=== PATIENT | female | born 1960 | race Caucasian/White ===

== ENCOUNTER 2020-03-01 07:25 | Outpatient (CLI) | payer BC, OTHER, SELFPAY ==
--- NOTE | ~2020-03-01 | MM_ITS ---
EXAMINATION: MM screening [facility] BI w ted HISTORY: Screening mammogram TECHNIQUE: Craniocaudal and mediolateral oblique 3-D tomosynthesis images were obtained and synthetic 2-D images were generated. CAD analysis was submitted and interpreted. COMPARISON: Comparison to multiple prior studies sequentially, with oldest reviewed study dated 09/17. BREAST PARENCHYMAL COMPOSITION: There are scattered areas of fibroglandular density. FINDINGS: There is no evidence of suspicious mass, calcification, or architectural distortion to sugg est malignancy in either breast. There has been no suspicious interval change. IMPRESSION: 1. No mammographic evidence of malignancy. 2. Recommend routine screening mammography in one year. BI-RADS Category 1: Negative Reviewed, dictated and finalized at location A.
== END 2020-03-01 07:26 | disposition home or self-care (01) ==
LOC: ANHIMG 07:29
PROVIDERS: PCP Family Medicine; Visit Provider Obstetrics & Gynecology Gynecology
DX: Z12.31 Encounter for screening mammogram for malignant neoplasm of breast (principal)
CPT/HCPCS: 77063; 77067

== ENCOUNTER 2020-03-01 08:09 | Outpatient (CLI) | payer BC, OTHER, SELFPAY ==
[2020-03-01 08:33] LABS: Alanine Aminotransferase 24 U/L (4-35); Albumin Level 4.2 g/dL (3.5-5.1); Alkaline Phosphatase 72 U/L (38-126); Aspartate Amino Transferase 29 U/L (14-36); Bilirubin,Total 0.6 mg/dL (0.2-1.3); Blood Urea Nitrogen 10 mg/dL (7-17); Carbon Dioxide 27 mmol/L (22-30); Chloride 104 mmol/L (98-107); Cholesterol 215 mg/dL (0-200); Estimated Glomerular Filt Rate > 60; Glucose 101 mg/dL (65-105); HDL Direct 48 mg/dL; Potassium 4.2 mmol/L (3.4-5.0); Sodium 136 mmol/L (137-145); Triglycerides 94 mg/dL (<150)
[2020-03-01 08:44] LABS: LDL Cholesterol Direct 135 mg/dL
== END 2020-03-01 08:10 | disposition home or self-care (01) ==
LOC: ANHLAB 08:11
PROVIDERS: PCP Family Medicine; Visit Provider Physician Assistant
DX: Z00.00 Encounter for general adult medical examination without abnormal findings (principal); E03.9 Hypothyroidism, unspecified; E78.5 Hyperlipidemia, unspecified
CPT/HCPCS: 36415; 80053; 80061; 84439; 84443

== ENCOUNTER 2020-11-15 08:25 | Outpatient (CLI) | payer BC, OTHER, SELFPAY ==
--- NOTE | ~2020-11-15 | DEXA_ITS ---
Bone Density Report Name: Ilana Ureña Age: 60 Sex: Female Ethnicity: White Date of : 1960 Indication: postmenopausal; height loss; Referring Provider: MAGALIS BAJWA Study: Bone densitometry was performed. Exam Date: November 15, 2020 Accession number: [id number] Bone Density: Region BMD T-score Z-score Classification AP Spine (L1-L4) 0.953 -0.9 0.7 Normal Femoral Neck (Left) 0.698 -1.4 0.0 Osteopenia Total Hip (Left) 0.818 -1.0 0.1 Normal Total Hip Bilateral Avg 0.845 -0.8 0.3 Normal Femoral Neck (Right) 0.754 -0.9 0.5 Normal Total Hip (Right) 0.870 -0.6 0.5 Normal World Health Organization criteria for BMD impression classify patients as: Normal (T-score at or above -1.0), Osteopenia (T-score between -1.0 and -2.5), or Osteoporosis (T-score at or below -2.5). 10-year Fracture Risk(1): Major Osteoporotic Fracture 7.6% Hip Fracture 0.6% Reported Risk Factors: [place] (), Neck BMD=0.698, BMI=32.6 (1) FRAX(R) Version 3.08. Fracture probability calculated for an untreated patient. Fracture probability may be lower if the patient has received treatment. Previous Exams: Region Exam Age BMD T-score BMD Change BMD Change Date g/cm2 vs Baseline vs Previous AP Spine(L1-L4) 11/15/2020 60 0.953 -0.9 -0.027(-2.8%)# -0.027(-2.8%)# 06/02/2012 51 0.980 -0.6 Total Hip(Left) 11/15/2020 60 0.818 -1.0 -0.084(-9.4%)# -0.022(-2.6%) 09/17/2016 56 0.840 -0.8 -0.063(-6.9%)# -0.063(-6.9%)# 06/02/2012 51 0.903 -0.3 Total Hip(Right) 11/15/2020 60 0.870 -0.6 -0.026(-2.9%)# -0.028(-3.2%)* 09/17/2016 56 0.899 -0.4 0.003(0.3%)# 0.003(0.3%)# 06/02/2012 51 0.896 -0.4 *Denotes significance at 95% confidence level, LSC for AP Spine = 0.022 g/cm2, LSC for Total Hip = 0.027 g/cm2 Clinical Information Provided by Patient: Has used the following medications: Vitamin D Patient maximum height was 66 Menopause Age: 53 Drinks caffeinated beverages Onset of menses at age 12 Number of children 1 Impression: The patient has low bone mass, based on the Left Femoral Neck T-score. The patient has an estimated ten-year risk of hip fracture of 0.6% and an estimated ten-year risk of major fracture of 7.6%, based on the WHO FRAX algorithm. The BMD for the Total Hip(Right) decreased, changing by -3.2% since the last DXA exam. Discussion: BONE DENSITY IS LOW AT ONE OR MORE SKELETAL SITES. This patient's lowest T-sc
== END 2020-11-15 08:26 | disposition home or self-care (01) ==
LOC: ANHIMG 08:27
PROVIDERS: PCP Family Medicine; Visit Provider Obstetrics & Gynecology Gynecology
DX: Z78.0 Asymptomatic menopausal state (principal); M85.852 Other specified disorders of bone density and structure, left thigh
CPT/HCPCS: 77080

== ENCOUNTER 2021-03-05 08:03 | Outpatient (CLI) | payer BC, OTHER, SELFPAY ==
--- NOTE | ~2021-03-05 | MM_ITS ---
EXAMINATION: MM screening [facility] BI w ted HISTORY: Screening mammogram TECHNIQUE: Craniocaudal and mediolateral oblique 3-D tomosynthesis images were obtained and synthetic 2-D images were generated. CAD analysis was submitted and interpreted. COMPARISON: 03/01/2020, 01/13/2019, 12/29/2018, 12/03/2017 BREAST PARENCHYMAL COMPOSITION: There are scattered areas of fibroglandular density. FINDINGS: There is no evidence of suspicious mass, calcification, or architectural distortion to sugg est malignancy in either breast. There has been no suspicious interval change. IMPRESSION: 1. No mammographic evidence of malignancy. 2. Recommend routine screening mammography in one year. BI-RADS Category 1: Negative Reviewed, dictated and finalized at location A.
== END 2021-03-05 08:04 | disposition home or self-care (01) ==
LOC: ANHIMG 08:05
PROVIDERS: PCP Family Medicine; Visit Provider Obstetrics & Gynecology Gynecology
DX: Z12.31 Encounter for screening mammogram for malignant neoplasm of breast (principal)
CPT/HCPCS: 77063; 77067

== ENCOUNTER 2021-05-01 07:01 | Outpatient (CLI) | payer BC, OTHER, SELFPAY ==
[2021-05-01 07:42] LABS: Hematocrit 41.7 % (37.0-47.0); Hemoglobin 13.6 g/dL (12.0-15.0); Mean Corpuscular HGB Conc 32.6 g/dl (32-36); Mean Corpuscular Hemoglobin 31.1 pg (26-34); Mean Corpuscular Volume 95.2 fl (80-100); Mean Platelet Volume 9.8 fl (7.4-10.4); Platelet Count Result 239 k/mm3 (150-375); Red Blood Count 4.38 M/mm3 (4.2-5.4); Red Cell Distribution Width 12.5 % (11.5-14.5)
[2021-05-01 08:10] LABS: Alanine Aminotransferase 24 U/L (4-35); Albumin Level 4.1 g/dL (3.5-5.1); Alkaline Phosphatase 71 U/L (38-126); Anion Gap 6 mmol/L (8-16); Aspartate Amino Transferase 32 U/L (14-36); Bilirubin,Total 0.6 mg/dL (0.2-1.3); Blood Urea Nitrogen 18 mg/dL (7-17); Calcium 9.1 mg/dL (8.4-10.2); Carbon Dioxide 26 mmol/L (22-30); Chloride 105 mmol/L (98-107); Cholesterol 232 mg/dL (0-200); Estimated Glomerular Filt Rate > 60; Glucose 97 mg/dL (65-110); HDL Direct 45 mg/dL; Potassium 4.1 mmol/L (3.4-5.0); Sodium 137 mmol/L (137-145); Triglycerides 138 mg/dL (<150)
[2021-05-01 08:11] LABS: LDL Cholesterol Direct 126 mg/dL
[2021-05-01 11:56] LABS: Vitamin D 25 Hydroxy 59.3 ng/mL
== END 2021-05-01 07:02 | disposition home or self-care (01) ==
PROVIDERS: PCP Family Medicine; Referring Provider Obstetrics & Gynecology Gynecology; Visit Provider Family Medicine
DX: E55.9 Vitamin D deficiency, unspecified (principal); E78.2 Mixed hyperlipidemia; R53.83 Other fatigue; Z00.00 Encounter for general adult medical examination without abnormal findings
CPT/HCPCS: 36415; 80053; 80061; 82306; 84443; 85027

== ENCOUNTER 2021-07-17 14:33 | Emergency (ER) | payer BC, OTHER, SELFPAY ==
[2021-07-17 14:46] VITALS: BP 150/68; PULSE 81; RESP 14; TEMP 36.8; O2SAT 100
--- NOTE | 2021-07-17 15:17 | ED.WOUNDLAC ---
HPI - Wound/Laceration General Chief Complaint: Wound/Laceration Stated Complaint: Cut finger Time Seen by Provider: 07/17/21 15:02 History of Present Illness HPI narrative: Patient is a 61-year-old female who presents ER with avulsion laceration to left second digit. It is at the tip. She cut it off with pruning michael 1 day ago. Unknown last tetanus. Came in today because it began bleeding. No fevers or chills or sweats. No lymphangitic streaking up the hand. No surrounding numbness or loss of function. Related Data Home Medications Medication Instructions Recorded Confirmed ospemifene 60 mg tablet 60 mg PO DAILY 02/09/20 04/03/21 ergocalciferol (vitamin D2) 50,000 unit PO 2XW tablet 04/03/21 04/03/21 unit tablet Allergies Allergy/AdvReac Type Severity Reaction Status Date / Time No Known Allergies Allergy Verified 07/17/21 15:21 Review of Systems Constitutional: Constitutional: Denies chills and Denies fever(s) Musculoskeletal: Musculoskeletal: Denies arthralgias and Denies joint swelling Integumentary/Breasts: Skin/Breast: Denies pruritus, Denies erythema and Denies rash Comments: skin avulsion Neurologic: Denies focal weakness and Denies numbness PMFSH Past Medical History Medical History (Updated 07/17/21 @ 16:29 by Jigar Sanabria MD) Allergic rhinitis Anxiety Dizziness HLD (hyperlipidemia) Obesity (BMI 30.0-34.9) Family History Family History Grandparent Cerebrovascular accident Father Family history of diabetes mellitus in first degree relative Family history of coronary artery disease Diabetes mellitus Patient's father is in good health Mother Patient's mother is in good health Sibling Patient's sister is in good health Patient's brother is in good health Other Family history of arthritis Family history of gout Hypertension Social History Social History (Updated 04/03/21 @ 14:14 by Augusta Yang) Second hand tobacco smoke exposure: No Alcohol intake: current Substance use: never Substance use type: does not use Gender identity (if verbalized by the patient): Female Spiritual care concerns: No Agree to blood products: Yes Exam Narrative: GENERAL: Well-appearing, well-nourished, and in no acute distress. HEAD: Normocephalic, atraumatic. EXTREMITIES: Normal range of motion and sensation of the left hand. SKIN: Warm, dry, no rash. Second digit with 1 cm diameter avulsion to the fingertip. No exposure of bone. No lymphangitic streaking or drainage. NEURO: Alert and oriented x3. PSYCH: Normal mood and affect. Course Course Emergency Course: Surgicel applied to the skin wound and a small AlumaFoam splint was also applied to the left second digit. Tetanus updated. Vital Signs Vital signs: Vital Signs Temperature 98.2 F 07/17/21 14:46 Pulse Rate 81 07/17/21 14:46 Respiratory Rate 14 07/17/21 14:46 Blood Pressure 150/68 H 07/17/21 14:46 Pulse Oximetry 100 07/17/21 14:46 Temperature 98.2 F 07/17/21 14:46 Pulse Rate 81 07/17/21 14:46 Respiratory Rate 14 07/17/21 14:46 Blood Pressure 150/68 H 07/17/21 14:46 Pulse Oximetry 100 07/17/21 14:46 Discharge Plan Discharge Clinical Impression: Avulsion of skin Patient Disposition: Home, Self-Care Condition: Stable Instructions: Skin Avulsion (ED) Additional Instructions: Return the ER if you have red/hot finger, you develop fever over 100.4 ?F, you have new injury, you have additional concerns. Prescriptions: No Action Osphena 60 mg tablet 60 mg PO DAILY RF: 0 omega 8-qnz-cdw-fish oil [Fish Oil] 1,000 mg (120 mg-180 mg) capsule 1 cap PO DAILY Qty: 90 RF: 3 ergocalciferol (vitamin D2) 50,000 unit tablet PO 2XW RF: 0 aspirin 81 mg tablet,delayed release (DR/EC) 81 mg PO DAILY Qty: 90 RF: 3 citalopram 20 mg tablet 20 mg PO DAILY Qt
[2021-07-17] MEDS: TETANUS,DIPHTHERIA,AC PERTUSSIS ADULT (0.5 ML) BOOSTRIX IM (15:39)
[2021-07-17 16:39] VITALS: BP 123/70; PULSE 73; RESP 18; O2SAT 97
== END 2021-07-17 16:40 | disposition home or self-care (01) ==
PROVIDERS: Emergency Provider Emergency Medicine; PCP Family Medicine
DX: S61.211A Laceration without foreign body of left index finger without damage to nail, initial encounter (principal); Z23 Encounter for immunization; E78.5 Hyperlipidemia, unspecified; E66.9 Obesity, unspecified; Z68.30 Body mass index [BMI] 30.0-30.9, adult; W27.1XXA Contact with garden tool, initial encounter
CPT/HCPCS: 90471; 90715; 99282

== ENCOUNTER 2022-04-15 07:13 | Outpatient (CLI) | payer BC, OTHER, SELFPAY ==
--- NOTE | ~2022-04-15 | MM_ITS ---
EXAMINATION: MM screening [facility] BI w ted HISTORY: Screening mammogram TECHNIQUE: Craniocaudal and mediolateral oblique 3-D tomosynthesis images were obtained and synthetic 2-D images were generated. CAD analysis was submitted and interpreted. COMPARISON: 03/05/2021, 03/01/2020 bilateral screening mammogram examinations BREAST PARENCHYMAL COMPOSITION: There are scattered areas of fibroglandular density. FINDINGS: There is no evidence of suspicious mass, calcification, or architectural distortion to sugg est malignancy in either breast. There has been no suspicious interval change. IMPRESSION: 1. No mammographic evidence of malignancy. 2. Recommend routine screening mammography in one year. BI-RADS Category 1: Negative Reviewed, dictated and finalized at location A.
== END 2022-04-15 07:14 | disposition home or self-care (01) ==
PROVIDERS: PCP Family Medicine; Visit Provider Obstetrics & Gynecology Gynecology
DX: Z12.31 Encounter for screening mammogram for malignant neoplasm of breast (principal)
CPT/HCPCS: 77063; 77067

== ENCOUNTER 2022-05-20 06:52 | Outpatient (CLI) | payer BC, OTHER, SELFPAY ==
[2022-05-20 08:07] LABS: Vitamin D 25 Hydroxy 70.5 ng/mL
== END 2022-05-20 06:53 | disposition home or self-care (01) ==
PROVIDERS: PCP Family Medicine; Visit Provider Obstetrics & Gynecology Gynecology
DX: E55.9 Vitamin D deficiency, unspecified (principal)
CPT/HCPCS: 36415; 82306

== ENCOUNTER 2022-12-30 15:24 | Outpatient (CLI) | payer BC, OTHER, SELFPAY ==
--- NOTE | ~2022-12-30 | XR_ITS ---
EXAMINATION: XR chest 2V Exam Date/Time: 12/30/2022 16:20 CDT HISTORY: R07.9 - Chest pain, unspecified, SOB FOR 2 DAYS Comparison: 12/19/2009. RESULT: Lines, tubes, and devices: Cholecystomy clips. Lungs and pleura: Calcified granulomas. Otherwise clear. Cardiomediastinal silhouette: Stable. Calcified hilar nodes. Other: No acute osseous or upper abdominal finding. IMPRESSION: No acute cardiopulmonary process. Reviewed, dictated and finalized at location K.
== END 2022-12-30 15:25 | disposition home or self-care (01) ==
PROVIDERS: PCP Family Medicine; Visit Provider Physician Assistant Medical
DX: R07.9 Chest pain, unspecified (principal)
CPT/HCPCS: 71046

== ENCOUNTER 2023-01-23 10:36 | Outpatient (CLI) | payer BC, OTHER, SELFPAY ==
--- NOTE | ~2023-01-23 | XR_ITS ---
Left foot Technique: AP, oblique, and lateral views were obtained. Clinical History: Pain Findings: No acute fracture or dislocation is seen. Osseous alignment is anatomic. Joint spaces are p reserved without erosive or degenerative change. Plantar calcaneal spur noted. Soft tissues are unrem arkable. Impression: Plantar calcaneal spur, otherwise unremarkable exam. Reviewed, dictated and finalized at location . Impression: Plantar calcaneal spur, otherwise unremarkable exam.
== END 2023-01-23 10:37 | disposition home or self-care (01) ==
LOC: ANHIMG 10:40
PROVIDERS: PCP Family Medicine; Visit Provider Family Medicine
DX: M77.32 Calcaneal spur, left foot (principal)
CPT/HCPCS: 73630

== ENCOUNTER 2023-04-27 07:10 | Outpatient (CLI) | payer BC, OTHER, SELFPAY ==
--- NOTE | ~2023-04-27 | MM_ITS ---
EXAMINATION: MM screening [facility] BI w ted HISTORY: Screening mammogram TECHNIQUE: Craniocaudal and mediolateral oblique 3-D tomosynthesis images were obtained and synthetic 2-D images were generated. CAD analysis was submitted and interpreted. COMPARISON: 04/15/2022, 03/05/2021, 03/01/2020 BREAST PARENCHYMAL COMPOSITION: There are scattered areas of fibroglandular density. FINDINGS: No suspicious mass, calcification, or architectural distortion are identified in either gamal ast to suggest malignancy. There has been no suspicious interval change. IMPRESSION: 1. No mammographic evidence of malignancy. 2. Recommend routine screening mammography in one year. BI-RADS Category 1: Negative Reviewed, dictated and finalized at location A.
== END 2023-04-27 07:11 | disposition home or self-care (01) ==
LOC: ANHIMG 07:13
PROVIDERS: PCP Family Medicine; Visit Provider Obstetrics & Gynecology Gynecology
DX: Z12.31 Encounter for screening mammogram for malignant neoplasm of breast (principal)
CPT/HCPCS: 77063; 77067

== ENCOUNTER 2023-05-19 08:11 | Outpatient (CLI) | payer BC, OTHER, SELFPAY ==
[2023-05-19 08:41] LABS: Alanine Aminotransferase 24 U/L (6-35); Albumin Level 3.8 g/dL (3.5-5.1); Alkaline Phosphatase 76 U/L (38-126); Anion Gap 6 mmol/L (8-16); Aspartate Amino Transferase 32 U/L (14-36); Bilirubin,Total 0.7 mg/dL (0.2-1.3); Blood Urea Nitrogen 11 mg/dL (7-17); Calcium 8.7 mg/dL (8.4-10.2); Carbon Dioxide 29 mmol/L (22-30); Chloride 105 mmol/L (98-107); Cholesterol 223 mg/dL (0-200); Estimated Glomerular Filt Rate > 60; Glucose 97 mg/dL (65-110); HDL Direct 46 mg/dL; Sodium 140 mmol/L (137-145); Triglycerides 216 mg/dL (<150)
[2023-05-19 08:53] LABS: LDL Cholesterol Direct 137 mg/dL
== END 2023-05-19 08:12 | disposition home or self-care (01) ==
LOC: ANHLAB 08:13
PROVIDERS: PCP Family Medicine; Visit Provider Physician Assistant
DX: Z13.1 Encounter for screening for diabetes mellitus (principal); Z13.220 Encounter for screening for lipoid disorders
CPT/HCPCS: 36415; 80053; 80061

== ENCOUNTER 2023-06-02 10:19 | Outpatient (CLI) | payer MEDICARE, BC, OTHER, SELFPAY ==
[2023-06-02 12:25] LABS: Vitamin D 25 Hydroxy 58.8 ng/mL
== END 2023-06-02 10:20 | disposition home or self-care (01) ==
LOC: ANHLAB 10:24
PROVIDERS: PCP Family Medicine; Visit Provider Obstetrics & Gynecology Gynecology
DX: E55.9 Vitamin D deficiency, unspecified (principal)
CPT/HCPCS: 36415; 82306

== ENCOUNTER 2023-06-15 08:51 | Outpatient (CLI) | payer MEDICARE, BC, OTHER, SELFPAY ==
[2023-06-15 09:48] LABS: Hematocrit 41.1 % (37.0-47.0); Hemoglobin 13.5 g/dL (12.0-15.0); Mean Corpuscular HGB Conc 32.8 g/dl (32-36); Mean Corpuscular Hemoglobin 31.3 pg (26-34); Mean Corpuscular Volume 95.4 fl (80-100); Mean Platelet Volume 9.6 fl (7.4-10.4); Platelet Count Result 291 k/mm3 (150-375); Red Blood Count 4.31 M/mm3 (4.2-5.4); Red Cell Distribution Width 12.2 % (11.5-14.5); White Blood Count 5.8 K/mm3 (4.5-10.0)
[2023-06-15 10:01] LABS: Alanine Aminotransferase 22 U/L (6-35); Albumin Level 3.8 g/dL (3.5-5.1); Alkaline Phosphatase 81 U/L (38-126); Anion Gap 5 mmol/L (8-16); Aspartate Amino Transferase 21 U/L (14-36); Bilirubin,Total 0.6 mg/dL (0.2-1.3); Blood Urea Nitrogen 10 mg/dL (7-17); Calcium 9.1 mg/dL (8.4-10.2); Carbon Dioxide 30 mmol/L (22-30); Chloride 103 mmol/L (98-107); Estimated Glomerular Filt Rate > 60; Glucose 98 mg/dL (65-110); Lipase 61 U/L (23-300); Potassium 4.2 mmol/L (3.4-5.0); Sodium 138 mmol/L (137-145)
== END 2023-06-15 08:52 | disposition home or self-care (01) ==
PROVIDERS: PCP Family Medicine; Visit Provider Physician Assistant
DX: R10.9 Unspecified abdominal pain (principal); Z13.1 Encounter for screening for diabetes mellitus; D64.9 Anemia, unspecified
CPT/HCPCS: 36415; 80053; 83690; 85027

== ENCOUNTER 2023-11-17 07:46 | Outpatient (CLI) | payer MEDICARE, BC, OTHER, SELFPAY ==
--- NOTE | ~2023-11-17 | DEXA_ITS ---
Bone Density Report Name: CARRILLO ARIAS Age: 63 Sex: Female Ethnicity: White Date of : 1960 Indication: postmenopausal; screening for osteoporosis; height loss; Referring Provider: MAGALIS BAJWA Study: Bone densitometry was performed. Exam Date: November 17, 2023 Accession number: [id number] Bone Density: Region BMD T-score Z-score Classification AP Spine(L1-L4) 0.920 -1.2 0.6 Osteopenia Femoral Neck (Left) 0.685 -1.5 0.1 Osteopenia Total Hip (Left) 0.879 -0.5 0.7 Normal Femoral Neck (Right) 0.739 -1.0 0.5 Normal Total Hip (Right) 0.895 -0.4 0.9 Normal Total Hip Mean 0.887 -0.5 0.8 Normal World Health Organization criteria for BMD impression classify patients as: Normal (T-score at or above -1.0), Osteopenia (T-score between -1.0 and -2.5), or Osteoporosis (T-score at or below -2.5). 10-year Fracture Risk(1): Major Osteoporotic Fracture 8.3% Hip Fracture 0.8% Reported Risk Factors: [place] (), Neck BMD=0.685, BMI=32.7 (1) FRAX(R) Version 3.08. Fracture probability calculated for an untreated patient. Fracture probability may be lower if the patient has received treatment. Clinical Information Provided by Patient: Has used the following medications: Vitamin D, Calcium Patient maximum height was 66 Drinks caffeinated beverages Onset of menses at age 13 Number of children 1 Impression: The patient has low bone mass, based on the Left Femoral Neck T-score. The patient has an estimated ten-year risk of hip fracture of 0.8% and an estimated ten-year risk of major fracture of 8.3%, based on the WHO FRAX algorithm. Discussion: BONE DENSITY IS LOW AT ONE OR MORE SKELETAL SITES. This patient's lowest T-score is low at one or more skeletal sites. It meets the World Health Organization's (WHO) criteria for ?low bone mass? (T-score between -1.0 and -2.5). The patient's 10-year risk of fracture as calculated by FRAX is less than the threshold where pharmacological therapy is recommended by the National Osteoporosis Foundation (NOF). However, all treatment decisions require clinical judgment and consideration of individual patient factors, including patient preferences, comorbidities, previous drug use, risk factors not captured in the FRAX model (e.g., frailty, falls, vitamin D deficiency, increased bone turnover, interval significant decline in bone density) and possible under or overestimation of fracture risk by FRAX. The patient should follow a healthful lifestyle (good nutrition with adequate calcium and vitamin D, and appropriate weight-bearing exercise). Follow-Up: Consider repeating this study in 2 to 3 years to reassess this patient's status, or sooner if there is some new clinical indication. Reported by: ADALBERTO on 11/17/2023 8:24:00 AM.
== END 2023-11-17 07:47 | disposition home or self-care (01) ==
PROVIDERS: PCP Family Medicine; Visit Provider Obstetrics & Gynecology Gynecology
DX: Z78.0 Asymptomatic menopausal state (principal); M85.89 Other specified disorders of bone density and structure, multiple sites
CPT/HCPCS: 77080

== ENCOUNTER 2024-01-04 09:27 | Outpatient (CLI) | payer MEDICARE, BC, OTHER, SELFPAY ==
--- NOTE | ~2024-01-04 | XR_ITS ---
Right Hand Technique: PA, oblique, and lateral views were obtained. Clinical History: Pain Findings: No acute fracture or dislocation is seen. Osseous alignment is anatomic. There is moderate degenerative change of the first CMC joint and the third through fifth DIP joints. Soft tissues are u nremarkable. Impression: Moderate degenerative changes, as above. Reviewed, dictated and finalized at location M. Impression: Moderate degenerative changes, as above.
--- NOTE | ~2024-01-04 | XR_ITS ---
Left Hand Technique: PA, oblique, and lateral views were obtained. Clinical History: Pain Findings: No acute fracture or dislocation is seen. Osseous alignment is anatomic. There is moderate degenerative change of the first CMC joint. There is moderate degenerative change of the fourth DIP j oint. Soft tissues are unremarkable. Impression: Moderate degenerative change of the first CMC joint. Moderate degenerative change of the fourth DIP joint. Reviewed, dictated and finalized at location M. Impression: Moderate degenerative change of the first CMC joint. Moderate degenerative change of the fourth DIP joint.
== END 2024-01-04 09:28 | disposition home or self-care (01) ==
LOC: ANHIMG 09:30
PROVIDERS: PCP Family Medicine; Visit Provider Plastic Surgery
DX: M65.4 Radial styloid tenosynovitis [de Quervain] (principal); M19.042 Primary osteoarthritis, left hand; M19.041 Primary osteoarthritis, right hand
CPT/HCPCS: 73130

== ENCOUNTER 2024-04-19 07:09 | Outpatient (CLI) | payer MEDICARE, BC, OTHER, SELFPAY ==
[2024-04-19 08:02] LABS: Basophils Absolute Auto 0.1 K/mm3 (0.0-0.1); Basophils Percent Auto 1.1 % (0.2-1.2); Eosinophils Absolute Auto 0.2 K/mm3 (0-0.3); Eosinophils Percent Auto 3.7 % (0-4.4); Hematocrit 42.4 % (37.0-47.0); Immature Granulocyte Absolute 0.04 K/mm3 (0.00-0.031); Immature Granulocyte Percent A 0.6 % (0-0.5); Lymphocytes Absolute Auto 2.39 K/mm3 (0.9-3.2); Lymphocytes Percent Auto 38.1 % (18.3-44.2); Mean Corpuscular Hemoglobin 31.7 pg (26-34); Mean Corpuscular Volume 96.1 fl (80-100); Monocytes Absolute Auto 0.4 K/mm3 (0.1-0.6); Monocytes Percent Auto 6.4 % (2.6-8.5); Neutrophils Absolute Auto 3.2 K/mm3 (1.3-6.7); Neutrophils Percent Auto 50.1 % (45.5-73.1); Platelet Count Result 259 k/mm3 (150-375); Red Blood Count 4.41 M/mm3 (4.2-5.4); Red Cell Distribution Width 12.6 % (11.5-14.5); White Blood Count 6.3 K/mm3 (4.5-10.0)
[2024-04-19 08:03] LABS: Alanine Aminotransferase 17 U/L (6-35); Albumin Level 3.8 g/dL (3.5-5.1); Alkaline Phosphatase 79 U/L (38-126); Anion Gap 9 mmol/L (4-12); Aspartate Amino Transferase 22 U/L (14-36); Bilirubin,Total 0.5 mg/dL (0.2-1.3); Blood Urea Nitrogen 11 mg/dL (7-17); Calcium 8.9 mg/dL (8.4-10.2); Carbon Dioxide 25 mmol/L (22-30); Chloride 106 mmol/L (98-107); Cholesterol 195 mg/dL (0-200); Estimated Glomerular Filt Rate > 60; Glucose 97 mg/dL (65-110); HDL Direct 47 mg/dL; Potassium 3.8 mmol/L (3.4-5.0); Sodium 140 mmol/L (137-145); Triglycerides 240 mg/dL (<150)
[2024-04-19 08:17] LABS: LDL Cholesterol Direct 120 mg/dL
[2024-04-19 09:23] LABS: Free T4 Free Thyroxine 0.87 ng/mL (0.78-2.19)
== END 2024-04-19 07:10 | disposition home or self-care (01) ==
PROVIDERS: PCP Family Medicine; Visit Provider Student in an Organized Health Care Education/Training Program
DX: R53.83 Other fatigue (principal); E78.5 Hyperlipidemia, unspecified
CPT/HCPCS: 36415; 80053; 80061; 84439; 84443; 85025

== ENCOUNTER 2024-04-28 07:18 | Outpatient (CLI) | payer MEDICARE, BC, OTHER, SELFPAY ==
--- NOTE | ~2024-04-28 | MM_ITS ---
EXAMINATION: MM screening [facility] BI w ted HISTORY: Screening mammogram TECHNIQUE: Craniocaudal and mediolateral oblique 3-D tomosynthesis images were obtained and synthetic 2-D images were generated. CAD analysis was submitted and interpreted. COMPARISON: 04/27/2023, 04/15/2022, 03/05/2021 BREAST PARENCHYMAL COMPOSITION:Not Dense. There are scattered areas of fibroglandular density. FINDINGS: No suspicious mass, calcification, or architectural distortion are identified in either gamal ast to suggest malignancy. There has been no suspicious interval change. IMPRESSION: No mammographic evidence of malignancy. Recommend routine screening mammography in one year. BI-RADS Category 1: Negative Reviewed, dictated and finalized at location .
== END 2024-04-28 07:19 | disposition home or self-care (01) ==
LOC: ANHIMG 07:19
PROVIDERS: PCP Family Medicine; Visit Provider Obstetrics & Gynecology Gynecology
DX: Z12.31 Encounter for screening mammogram for malignant neoplasm of breast (principal)
CPT/HCPCS: 77063; 77067

== ENCOUNTER 2025-05-10 07:43 | Outpatient (CLI) | payer MEDICARE, BC, OTHER, SELFPAY ==
--- OUTSIDE RECORDS SUMMARY | 2018-05-26 18:20 | XMS_ITS | Continuity of Care Document ---
Author Organization [facility] Address [address] [place] [address] Phone Care Team Providers Care Spout Liner Name Role Phone Monse SNIDER, Tomi Unavailable Unavailable Advance Directives Directive Yes / No Effective Date File Name No Information Encounters Encounter Description Practice Location Reason(s) For Visit Diagnoses Date Provider Providers Copied on Encounter [facility], [address], [place], [place], [id number], [place] tel:[phone] [facility] No Information Monse Krishna. [address], [place], [id number] , [place]. tel:[phone] Family History Family Member Type Diagnosis Age At Onset No Information Payers Payer name Insurance type Covered libertarian ID Authoriza tion(s) No Information Social History Type Description Quantity Date Captured Comments Sex Female Smoking Status No Information Chief Complaint And Reason For Visit No Information Reason For Referral Reason For Referral No Information History Of Present Illness Encounter Date Complaint History Of Prese nt Illness No Information Functional Status Date Functional Assessmen t No Information Instructions Date Instruction Additional Infor mation No Information Assessments Type Assessment Date No Information Patient Care Teams Name Effective Dates (start - stop) Status Members No Information
--- NOTE | ~2025-05-10 | MM_ITS ---
EXAMINATION: MM screening [facility] BI w ted HISTORY: Screening TECHNIQUE: Craniocaudal and mediolateral oblique 3-D tomosynthesis images were obtained and synthetic 2-D images were generated. CAD analysis was submitted and interpreted. COMPARISON: Comparison to multiple prior studies sequentially, with oldest reviewed study dated , 03/01/2020 BREAST PARENCHYMAL COMPOSITION: There are scattered areas of fibroglandular density. FINDINGS: There is no evidence of suspicious mass, calcification, or architectural distortion to suggest malignancy in either breast. IMPRESSION: 1. No mammographic evidence of malignancy. 2. Recommend routine screening mammography in one year. BI-RADS Category 1: Negative Reviewed, dictated and finalized at location B.
--- OUTSIDE RECORDS SUMMARY | 2025-05-10 08:00 | XMS_ITS | Clinical Summary ---
Author Organization [facility] Address [address] [place] [address] Care Team Providers Care Wallcovering Texturer Name Role Phone Shruthi Mclean MD Primary Care Provider [phone] Allergies No known active allergies Medications pantoprazole EC 40 MG tablet TAKE 1 TABLET BY MOUTH EVERY NIGHT AT BEDTIME FOR 8 WEEKS 01/23/2021 Active Ospemifene (OSPHENA) 60 MG Tab Active omega-3 fatty acid 1000 MG capsule Active loratadine (CLARITIN) 10 MG tablet 10 mg daily. Active Ergocalciferol (VITAMIN D2) 50 MCG (1999) Tab Active ASPIRIN 81 OR Active Active Problems Problem Noted Date Diagnosed Date Diverticulitis 03/11/2021 Overview (03/11/2021): Added automatically from request for surgery [id number] Gastroesophageal reflux dise ase, unspecified whether esophagitis present 03/11/2021 Overview (03/11/2021): Added automatically from request for surgery [id number] Immunizations Immunization Administration Dates Next Due Flucelvax 6 Months+ (Prefilled Syringe) 06/12/20 18 Influenza (Generic) 05/18/2020 Influenza Adult (Generic) 06/19/2019 Tdap (Generic) 09/28/2015 Social History Tobacco Use Types Packs/Day Years Used Date Smoking Tobacco: Never Smokeless Tobacco: Never Alcohol Use Standard Drinks/Week Comments Not Currently 0 (1 standard drink = 0.6 oz pur e alcohol) Comments No Sex and Gender Information Value Date Recorded Sex Assigned at Not on file Legal Sex Female 9:55 AM CDT Gender Identity Not on file Sexual Orientation Not on file Last Filed Vital Signs Vital Sign Reading Time Taken Comments Blood Pressure 109/56 05/10/2021 9:30 AM CDT Pulse 72 05/10/2021 9:30 AM CDT Temperature 35.9 C (96.7 F) 05/10/2021 9:00 AM CDT Respiratory Rate 18 05/10/2021 9:30 AM CDT Oxygen Saturation 100% 05/10/2021 9:30 AM CDT Inhaled Oxygen Concentration - - Weight 77.1 kg (170 lb) 05/01/2021 11:58 AM CDT Height 165.1 cm (5' 5) 05/01/2021 11:32 AM CDT Body Mass Index 28.29 05/01/2021 11:32 AM CDT Plan of Treatment Health Maintenance Due Date Last Done Comments Hepatitis C 1976 Pneumococcal Vaccine: 50+ Years (1 of 1 - PCV) 2008 Zoster Vaccines (1 of 2) 2008 Mammogram Screening 03/05/2023 03/05/2021, 01/13/2019, 12/29/2018 COVID-19 Vaccine (3 - 2024-2 6 season) 2025 10/23/2020, 10/02/2020 DTaP, Tdap and Td Vaccines ( 2 - Td or Tdap) 09/28/2025 09/28/2015 Colorectal Cancer Screening Colonoscopy (10 Years) 05/10/2031 05/10/2021 RSV Immunization or 60+ Years (1 - 1-dose 75+ series) 2033 Dexa Scan (General) Completed 11/15/2020 Meningococcal B Vaccine Aged Out No l onger eligible based on patient's age to complete this topic Meningococcal Vaccine Aged Out No patricia dorcas eligible based on patient's age to complete this topic RSV Immunizations Under 20 Months Aged Out No longer eligible b ased on patient's age to complete this topic Procedures Procedure Name Priority Date/Time Associated Diagnosis Comments MAMMOGRAM GENERIC (SCAN ORDER) 03/05/2021 BONE DENSITY GENERIC (SCAN ORDER) 11/15/2020 from Last 3 Months or Most Recently Relevant to Health Maintenance Results * MAMMOGRAM GENERIC (03/05/2021) Anatomical Region Laterality Modality Other 03/05/2021 Narrative 03/05/2021 Ordered by an unspecified provider. us Documents Scanned SCANNING Final Result * BONE DENSITY GENERIC (11/15/2020) Anatomical Region Laterality Modality Other 11/15/2020 Narrative 11/15/2020 Ordered by an unspecified provider. us Documents Scanned SCANNING Final Result from Last 3 Months or Most Recently Relevant to Health Maintenance Insurance [facility] Care Teams Wallcovering Texturer Relationship Specialty Start Date End Date Shruthi Mclean MD PCP - General FAMILY PRACTICE 01/03/21
== END 2025-05-10 07:44 | disposition home or self-care (01) ==
LOC: ANHFOHIMG 07:45
PROVIDERS: PCP Family Medicine; Visit Provider Obstetrics & Gynecology Gynecology
DX: Z12.31 Encounter for screening mammogram for malignant neoplasm of breast (principal)
CPT/HCPCS: 77063; 77067

== ENCOUNTER 2025-05-23 06:49 | Outpatient (CLI) | payer MEDICARE, BC, OTHER, SELFPAY ==
--- OUTSIDE RECORDS SUMMARY | 2025-05-23 06:53 | XMS_ITS | Clinical Summary ---
Author Organization [facility] Address [address] [place] [address] Care Team Providers Care Kitchen Cleaner Name Role Phone Shruthi Mclean MD Primary Care Provider [phone] Allergies No known active allergies Medications pantoprazole [...] (03/11/2021): Added automatically from request for surgery [id number] Gastroesophageal reflux dise ase, unspecified whether esophagitis present 03/11/2021 Overview (03/11/2021): Added automatically from request for surgery [id number] Immunizations Immunization Administration Dates Next Due Flucelvax [...] Most Recently Relevant to Health Maintenance Insurance [facility] Care Teams Kitchen Cleaner Relationship Specialty Start Date End Date Shruthi Mclean MD PCP - General FAMILY PRACTICE 01/03/21
[2025-05-23 07:34] LABS: Hematocrit 42.7 % (37.0-47.0); Hemoglobin 13.9 g/dL (12.0-15.0); Immature Granulocyte Percent A 0.5 % (0-0.5); Lymphocytes Absolute Auto 2.58 K/mm3 (0.9-3.2); Mean Corpuscular HGB Conc 32.6 g/dl (32-36); Mean Corpuscular Hemoglobin 31.0 pg (26-34); Mean Corpuscular Volume 95.1 fl (80-100); Nucleated Red Blood Cells Absolute Auto 0.000 K/mm3 (0.0-0.012); Nucleated Red Blood Cells Perc 0.0 % (0.0-0.2); Platelet Count Result 264 k/mm3 (150-375); Red Blood Count 4.49 M/mm3 (4.2-5.4); White Blood Count 5.8 K/mm3 (4.5-10.0)
[2025-05-23 08:02] LABS: Alanine Aminotransferase 15 U/L (6-35); Albumin Level 3.8 g/dL (3.5-5.1); Alkaline Phosphatase 81 U/L (38-126); Anion Gap 6 mmol/L (4-12); Aspartate Amino Transferase 28 U/L (14-36); Bilirubin,Total 0.9 mg/dL (0.2-1.3); Blood Urea Nitrogen 10 mg/dL (7-17); Calcium 8.8 mg/dL (8.4-10.2); Carbon Dioxide 27 mmol/L (22-30); Chloride 104 mmol/L (98-107); Cholesterol 241 mg/dL (0-200); Estimated Glomerular Filt Rate > 60; Glucose 91 mg/dL (65-110); HDL Direct 60 mg/dL; Potassium 4.0 mmol/L (3.4-5.0); Sodium 137 mmol/L (137-145); Total Protein 6.8 g/dL (6.3-8.2); Triglycerides 142 mg/dL (<150)
[2025-05-23 08:26] LABS: Thyroid Stimulating Hormone Reflex 3.770 uIU/mL (0.465-4.68)
== END 2025-05-23 06:50 | disposition home or self-care (01) ==
LOC: ANHLAB 06:51
PROVIDERS: PCP Family Medicine; Visit Provider Family Medicine
DX: E78.2 Mixed hyperlipidemia (principal); R53.83 Other fatigue
CPT/HCPCS: 36415; 80053; 80061; 84443; 85025